=== PATIENT | male | born 1995 | race American Indian/Alaskan Native ===

== ENCOUNTER 2017-12-27 13:30 | Emergency (ER) | payer OTHER, BC ==
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
[2017-12-27 14:36] VITALS: BP 135/58
== END 2017-12-27 15:18 | disposition home or self-care (01) ==
LOC: VM.ED 13:30
DX: S00.01XA Abrasion of scalp, initial encounter (principal); S09.90XA Unspecified injury of head, initial encounter; V43.52XA Car driver injured in collision with other type car in traffic accident, initial encounter; Y92.410 Unspecified street and highway as the place of occurrence of the external cause
CPT/HCPCS: 70450; 72125; 99284